=== PATIENT | female | born 1985 | race Caucasian/White ===

== ENCOUNTER 2018-01-15 07:20 | Day surgery (SDC) | payer OTHER ==
[2018-01-11 16:24] LABS: Absolute Lymphocytes (CBC) 1.8 K/uL (0.7-4.9); Absolute Monocytes 0.8 K/uL (0.1-1.3); Absolute Neutrophil 3.2 K/uL (1.8-8.0); Basophils % 0.6 % (0-1.3); Eosinophils % 1.4 % (0-4.4); Hematocrit 33.3 % (36.0-45.0); Lymphocytes % 30.1 % (15.3-44.8); MCH 24.3 pg (27.0-35.0); MCV 75.2 fL (80-100); MPV 8.4 fL (7.6-11.3); Monocytes % 13.3 % (3.3-12.3); RBC Red Blood Cell Count 4.43 M/uL (3.86-4.86)
[2018-01-15 07:36] LABS: Specific Gravity >= 1.030 (1.005-1.030)
[2018-01-15] MEDS ORDERED: Ringers Lactate 1,000 ML IV ONE (08:01)
[2018-01-15] MEDS ORDERED: SILVER NITRATE 1 APPL TOP ONE (08:23)
[2018-01-15] MEDS ORDERED: NA CHLORIDE 0.9% 1,000 ML ONE (08:24)
[2018-01-15] MEDS ORDERED: LIDOCAINE 1% W/EPI 1:100,000 MDV 50 ML VIAL ONE (08:24)
[2018-01-15] MEDS ORDERED: PROPOFOL 200 MG/20 ML VIAL IV ONE (08:25)
[2018-01-15] MEDS ORDERED: LIDOCAINE 2% MPF 5 ML VIAL ONE (08:26)
[2018-01-15] MEDS ORDERED: MIDAZOLAM HCL 2 MG/2 ML INJ ONE (08:26)
[2018-01-15] MEDS ORDERED: FENTANYL CITR 100 MCG/2 ML ONE ×2 (08:27→09:33)
[2018-01-15] MEDS ORDERED: ONDANSETRON 4 MG/2 ML VIAL ONE (08:27)
[2018-01-15] MEDS ORDERED: DEXAMETHASONE 10 MG/ML VIAL ONE (09:26)
[2018-01-15] MEDS ORDERED: Oxycodone HCl/Acetaminophen 1 TAB TAB PO PRN (09:36)
[2018-01-15] MEDS ORDERED: IBUPROFEN 400 MG TAB PO PRN (09:36)
[2018-01-15] MEDS ORDERED: ONDANSETRON 4 MG (ODT) TAB PO PRN (09:36)
[2018-01-15] MEDS ORDERED: KETOROLAC 30 MG/ML INJ IV PRN (09:36)
--- NOTE | 2018-01-15 09:41 | P.OP ---
Car Sales Consultant: NONE,NONE Preoperative diagnosis: Endometrial polyp Postoperative diagnosis: same Primary procedure: Hysteroscopy, polypectomy with Symphion device Estimated blood loss: none Specimen: endometrial polyp Findings: very small polyp and posterior aspect of uterus Operative Technique: The patient was taken to the operating room where she was properly prepped and draped in sterile manner under general anesthesia. After bimanual examination, the cervix was exposed with a bivalve vaginal speculum and the anterior lip of the cervix grasped with a single tooth tenaculum. The endocervical canal was then progressively dilated with Hanks and Hegar dilators to a #10 Hegar. The [employer] hysteroscope with the symphion device attached was then introduced into the uterine cavity using sterile saline solution as a distending media and with attached video camera. The endometrial cavity was distended with fluids and the cavity visualized. Small endometrial polyps were noted at posterior part of the cavity. The coronal areas were visualized bilaterally with corresponding tubal ostia. A moderate amount of proliferative appearing endometrium was noted. There were no direct intraluminal lesions seen. Symphion was then used to resect the polyp and the tissue will be sent to pathology. The patient tolerated the procedure well. Several pictures were taken of the endometrial cavity and the hysteroscope removed from the cavity. The instrument was removed from the vaginal vault. The patient was sent to recovery area in satisfactory postoperative condition. Complications: None Transferred to: Recovery Room Condition: Good
[2018-01-15] MEDS: MEPERIDINE HCL 50 MG/ML AMP ONE ×2 (09:47→09:52)
[2018-01-15 10:29] VITALS: O2SAT 100
[2018-01-15 11:03] VITALS: BP 108/67; TEMP 97.8
== END 2018-01-15 11:02 | disposition home or self-care (01) ==
LOC: OR 07:20
PROVIDERS: ATTEND Student in an Organized Health Care Education/Training Program
PROC: 0UB98ZX Excision of Uterus, Via Natural or Artificial Opening Endoscopic, Diagnostic (ICD-10-PCS; principal; 2018-01-15 08:30)
DX: N84.0 Polyp of corpus uteri (principal); Z83.3 Family history of diabetes mellitus; Z80.8 Family history of malignant neoplasm of other organs or systems
CPT/HCPCS: 36415; 81025; 85025; 86850; 86900; 86901; 88305; J1100; J2175; J2250; J2405; J3010; J7030